=== PATIENT | female | born 1965 | race Caucasian/White ===

== ENCOUNTER 2020-12-21 09:35 | Outpatient (CLI) | payer OTHER, SELFPAY ==
--- NOTE | 2021-01-09 02:25 | WPDHOMESLEEP ---
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 She had COVID-19 in May of 2020 and this worsened her quality of sleep. She feels that she cannot get enough oxygen, and needs to remind herself to take deep breaths. In the past she was prescribed a sleeping pill to help with sleep issues but she did not have any benefit. When she worked 2 jobs, she used to take Advil p.m. and Benadryl to help her fall asleep. She no longer does this. She occasionally awakens from sleep feeling short of breath. She does not awaken at night with heartburn, belching or coughing. She frequently snores but only occasionally isn't loud enough that others complain about it. She occasionally has difficulty sleeping with a cold. She frequently wakes up gasping for breath at night and this happens while she is dreaming. She never sweats excessively at night. She occasionally notices her heart pounding or beating irregularly at night, usually associated with dreaming or noises. She rarely falls asleep during the day, never involuntarily and never while driving. She does not have loss of muscle tone with strong emotion. She rarely has daytime difficulty due to excessive sleepiness. She does not feel paralyzed on waking or falling asleep, does not have vivid dreamlike scenes upon awakening or falling asleep and does not feel afraid to go to sleep. She does not have nightmares. She occasionally remembers her dreams. She frequently has racing thoughts. She rarely feels sad or depressed. She frequently has anxiety and muscular tension. She occasionally notices parts of her body jerking. She frequently kicks at night. She does not have crawling and aching feelings in her legs, does not have any kind of leg pain at night and does jaw pain. She occasionally grinds her teeth during sleep. She occasionally has bothered by pain during the day, occasionally awakened by pain at night, occasionally wakes up feeling stiff in the morning with sore achy muscles and pain in the neck and spine. She has rare morning headaches, fatigue, insomnia, She rarely has problems with memory or concentration. Her hematocrit was elevated at 46.1% on 10/13/2020. Normal bedtime is between 930 and 10:00 p.m. taking 30 minutes sometimes longer to fall asleep typically waking 3 times during the night. She made have a snack, watch television or read. It may take her 1-3 hours to fall asleep again. She wakes the morning at 5:30 a.m.. On the weekends, bedtime is 10:00 p.m. and her wake-up time is 7:00 a.m.. She falls asleep with the television on. She does not generally take naps in the afternoon or evening. She does feel refreshed after a short nap but generally does not nap. She is drowsy the morning for 3 hours or longer. She feels better in the morning or evening compared to the afternoons. Habits: Never smoked tobacco. Caffeine 4-6 cups of coffee per day. Alcohol 1-2 glasses of wine in the evening. No recreational drugs. [facility] Past Medical History Medical History (Updated 01/09/21 @ 07:01 by Esther Velazquez MD) Allergies Bronchitis Cyst of breast Excessive daytime sleepiness Fatigue Headache Low vitamin D level Polycythemia Skin cancer Surgical History Surgical History (Updated 04/15/19 @ 14:33 by Jamila Puga CMA) H/O tubal ligation History of breast lump removal Hx of foot surgery Family History Family History (Updated 04/15/19 @ 15:12 by Jamila Puga CMA) Mother Heart disease
[2021-01-09 07:02] VITALS: BMI 26.5
== END 2020-12-30 14:09 | disposition home or self-care (01) ==
PROVIDERS: PCP Internal Medicine; Visit Provider Nurse Practitioner
DX: G47.10 Hypersomnia, unspecified (principal)
CPT/HCPCS: 95800

== ENCOUNTER 2021-04-17 07:43 | Emergency (ER) | payer OTHER, SELFPAY ==
--- NOTE | ~2021-04-17 | XR_ITS ---
EXAMINATION: XR hand RT min 3V INDICATION: Right hand pain TECHNIQUE: Three views of the right hand are obtained. COMPARISON: None available FINDINGS: There is no fracture, dislocation, or subluxation. There is mild osteoarthritis of multiple interphalangeal joints. The soft tissues are unremarkable. IMPRESSION: 1. No acute osseous abnormality. Reviewed, dictated and finalized at location B. 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
--- NOTE | ~2021-04-17 | XR_ITS ---
XR shoulder RT min 2V 04/17/2021 08:34 INDICATION: Right shoulder pain after fall PROCEDURE: 4 views right shoulder COMPARISON: No prior studies for comparison. FINDINGS: Fracture, dislocation or subluxation is not identified. The soft tissues appear within norm al limits. No foreign bodies are identified. IMPRESSION: 1: NO ACUTE BONE OR JOINT ABNORMALITY IDENTIFIED. Reviewed, dictated and finalized at location A. 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
--- NOTE | 2021-04-17 08:33 | ED.UPPEXIN ---
HPI - Extremity Injury (Upper) General Chief Complaint: Extremity Injury, Upper Stated Complaint: FALL, R HAND PAIN Time Seen by Provider: 04/17/21 08:14 Source: patient and RN notes reviewed Mode of arrival: ambulatory Limitations: no limitations History of Present Illness HPI narrative: This is a 55 year old female who presents for evaluation of right hand pain s/p fall. Last night she accidentally fell onto her right hand. She thinks her shoe got caught on something. She denies hitting her head or LOC. She reports abrasion to right knee, right shoulder soreness and right hand pain. She has been able to walk without issue to her knee. She states her right hand was swollen last night so she took medication and applied ice. This morning she noticed pain to right second finger so she wants a hand xray. Denies numbness or tingling. Related Data Allergies Allergy/AdvReac Type Severity Reaction Status Date / Time levofloxacin Allergy Unknown Hives Verified 04/17/21 07:44 prednisone Allergy Unknown Hives Verified 04/17/21 07:44 Quinolones Allergy Unknown Hives Verified 04/17/21 07:44 tetracycline Allergy Unknown Hives Verified 04/17/21 07:44 Review of Systems Review of Systems: All systems reviewed & are unremarkable except as noted in HPI and below PMFSH Past Medical History Medical History Allergies Bronchitis Cyst of breast Excessive daytime sleepiness Fatigue Headache Low vitamin D level Polycythemia Skin cancer Surgical History Surgical History H/O tubal ligation History of breast lump removal Hx of foot surgery Family History Family History (Updated 04/15/19 @ 15:12 by Jamila Puga CMA) Mother Heart disease Social History Social History Smoking status: Never smoker Alcohol intake: current Exam Const: General: no acute distress and alert Orientation/consciousness: patient oriented x3 HENMT: Head: normocephalic and atraumatic Face and sinus: face symmetric Eyes: EOM: EOMs intact bilaterally Chest: Chest palpation & inspection: normal inspection of the chest Resp: Effort & Inspection: normal respiratory effort Neuro: General: patient oriented x3 and moves all extremities Extrem: Other: abrasion to right knee but no swelling or deformity FROM right shoulder- no swelling or bruising FROM right hand and fingers, no bruising or deformity, TTP right second finger at DIP Course Reevaluation(s) Reevaluation #1: I discussed with patient that xray was negative. I discussed discharge plan. She does not have any additional questions. Date: 04/17/21 Time: 09:07 Vital Signs Vital signs: Vital Signs Temperature 97 F L 04/17/21 08:50 Pulse Rate 87 04/17/21 08:50 Respiratory Rate 16 04/17/21 08:50 Blood Pressure 97/65 L 04/17/21 08:50 Pulse Oximetry 97 04/17/21 08:50 Temperature 97 F L 04/17/21 08:50 Pulse Rate 87 04/17/21 08:50 Respiratory Rate 16 04/17/21 08:50 Blood Pressure 97/65 L 04/17/21 08:50 Pulse Oximetry 97 04/17/21 08:50 MDM - Extremity Injury (Upper) Imaging Data Radiologist's impression: ITS Impressions Hand X-Ray 04/17/21 08:38 IMPRESSION: 1. No acute osseous abnormality. Shoulder X-Ray 04/17/21 08:39 IMPRESSION: 1: NO ACUTE BONE OR JOINT ABNORMALITY IDENTIFIED. Discharge Plan Discharge Clinical Impression: Contusion of hand, right, Sprain of right shoulder Patient Disposition: Home, Self-Care Condition: Stable Instructions: Antibiotic Form, Hand Sprain (ED) Additional Instructions: Today your xrays were negative for fracture or broken bone. Take tylenol and ibuprofen for your pain. Prescriptions: No Action albuterol sulfate [Ventolin HFA] 90 mcg/actuation HFA aerosol inhaler 2 puff INHALATION Q4-6H PRN (Reason: shortness of breath or wheezing) Qty: 8.
[2021-04-17 08:50] VITALS: BP 97/65; PULSE 87; RESP 16; TEMP 36.1; O2SAT 97
== END 2021-04-17 09:30 | disposition home or self-care (01) ==
PROVIDERS: Emergency Provider General Practice; PCP Internal Medicine
DX: S60.221A Contusion of right hand, initial encounter (principal); S43.401A Unspecified sprain of right shoulder joint, initial encounter; D75.1 Secondary polycythemia; Z85.828 Personal history of other malignant neoplasm of skin; W01.0XXA Fall on same level from slipping, tripping and stumbling without subsequent striking against object, initial encounter
CPT/HCPCS: 73030; 73130; 99284

== ENCOUNTER → 2021-06-21 16:34 | Outpatient (CLI) | payer OTHER, SELFPAY ==
--- NOTE | ~2021-06-21 | XR_ITS ---
EXAMINATION: XR sacrum coccyx min 2V INDICATION: Pain after fall TECHNIQUE: Three views of the sacrum and coccyx are obtained. COMPARISON: None available FINDINGS: Bone alignment is normal. No definite fracture is identified. There are phleboliths of the pelvis. IMPRESSION: 1. No definite acute fracture identified. Reviewed, dictated and finalized at location F. 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
== END ==
PROVIDERS: PCP Internal Medicine; Visit Provider Nurse Practitioner
DX: M53.3 Sacrococcygeal disorders, not elsewhere classified (principal)
CPT/HCPCS: 72220

== ENCOUNTER → 2023-01-22 09:24 | Outpatient (CLI) | payer OTHER, SELFPAY ==
--- NOTE | ~2023-01-22 | XR_ITS ---
EXAMINATION: XR knee LT 3V DATE: 01/22/2023 10:08 INDICATION: Left knee pain. TECHNIQUE: 3 views of left knee including standing views were obtained. COMPARISON: None. FINDINGS: Bone alignment is normal. No fracture. There is mild osteoarthritis of medial and patellofe moral compartments characterized by marginal osteophytes. No joint space narrowing. No knee joint eff usion. IMPRESSION: 1. Mild left knee osteoarthritis. Reviewed, dictated and finalized at location A.
--- NOTE | ~2023-01-22 | XR_ITS ---
EXAMINATION: XR knee RT 3V DATE: 01/22/2023 10:08 INDICATION: Right knee pain. TECHNIQUE: 3 views of right knee including standing views were obtained. COMPARISON: None. FINDINGS: Bone alignment is normal. No fracture. There is mild osteoarthritis of medial and patellofe moral compartments characterized by tiny osteophytes. No joint space narrowing. No knee joint effusio n. IMPRESSION: 1. Mild right knee osteoarthritis. Reviewed, dictated and finalized at location A.
== END ==
PROVIDERS: PCP Internal Medicine; Visit Provider Internal Medicine
DX: R51.9 Headache, unspecified (principal); M17.0 Bilateral primary osteoarthritis of knee
CPT/HCPCS: 73562

== ENCOUNTER → 2023-01-22 09:28 | Outpatient (CLI) | payer OTHER, SELFPAY ==
--- NOTE | ~2023-01-22 | XR_ITS ---
EXAMINATION: XR wrist RT min 3V DATE: 01/22/2023 10:08 INDICATION: Right wrist pain. TECHNIQUE: 4 views of right wrist were obtained. COMPARISON: Right hand radiographs 04/17/2021 FINDINGS: Bone alignment is normal. No fracture. Joint spaces are normal. IMPRESSION: 1. Normal right wrist. Reviewed, dictated and finalized at location A. IMPRESSION: 1. Normal right wrist.
--- NOTE | ~2023-01-22 | XR_ITS ---
EXAMINATION: XR wrist LT min 3V DATE: 01/22/2023 10:09 INDICATION: Left wrist pain. TECHNIQUE: 4 views of left wrist were obtained. COMPARISON: None. FINDINGS: Bone alignment is normal. No fracture. Joint spaces are normal. IMPRESSION: 1. Normal left wrist. Reviewed, dictated and finalized at location A. IMPRESSION: 1. Normal left wrist.
== END ==
PROVIDERS: PCP Internal Medicine; Visit Provider Internal Medicine
DX: M25.531 Pain in right wrist (principal); M25.532 Pain in left wrist
CPT/HCPCS: 73110

== ENCOUNTER → 2023-02-22 08:30 | Outpatient (CLI) | payer OTHER, SELFPAY ==
--- NOTE | ~2023-02-22 | MR_ITS ---
EXAMINATION: MR brain/brain stem wo/w con DATE: 02/22/2023 09:10 INDICATION: Headache, unspecified. TECHNIQUE: Magnetic resonance imaging (MRI) of the brain and brainstem was performed without and with 13 mL MultiHance intravenous contrast. COMPARISON: Head CT 07/13/2007 FINDINGS: There is no intracranial hemorrhage, acute infarction, or abnormal intracranial mass lesion . There are a few areas of nonspecific increased T2-weighted signal intensity in the cerebral white m atter, which is within normal limits for the patient's age. The ventricles are normal in size. The pa ranasal sinuses are clear. The orbits are normal. The mastoid air cells are normal. IMPRESSION: 1. Normal brain. Reviewed, dictated and finalized at location A. IMPRESSION: 1. Normal brain.
== END ==
PROVIDERS: PCP Internal Medicine; Visit Provider Internal Medicine
DX: R51.9 Headache, unspecified (principal); M25.50 Pain in unspecified joint
CPT/HCPCS: 70553; A9577

== ENCOUNTER 2023-05-15 13:36 | Outpatient (CLI) | payer OTHER, SELFPAY ==
--- NOTE | ~2023-05-15 | CT_ITS ---
CT ANGIOGRAM NECK AND HEAD History: Dizziness, headache. Technique: Axial noncontrast imaging of the brain was performed. Serial spiral axial images through t he head and neck were then obtained during arterial phase IV injection of 100 cc of Omnipaque 350. 3- D postprocessing and MIP images were then reconstructed on the remote workstation. Dose reduction dashawn hnique was used on this scan by utilizing automated exposure control and iterative reconstruction dashawn hnique. The dose-length product (DLP) was 1393.77 mGy-cm. CTA neck findings: Bilateral vertebral arteries are patent. Bowel, carotid, internal carotid, and ex ternal carotid arteries are patent. No large vessel occlusion. No stenosis or aneurysm. The proximal right internal carotid artery demonstrates 0% stenosis relative to the normal distal artery lumen omar meter. The proximal left internal carotid artery demonstrates 0% stenosis relative to the normal dist al artery lumen diameter. CTA head findings: Distal vertebral arteries, basilar artery, and posterior cerebral arteries are pat ent. Distal internal carotid arteries, middle cerebral arteries, and anterior cerebral arteries are p atent. No large vessel occlusion. No stenosis or aneurysm. Axial noncontrast imaging of the brain is unremarkable. No intracranial hemorrhage, mass lesion, or a cute infarct seen. Rodgers-white differentiation preserved. No mass effect or midline shift evident. Anton tricles and subarachnoid spaces are unremarkable. Paranasal sinuses and mastoid air cells are clear. Impression: Unremarkable exam. Reviewed, dictated and finalized at location . 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
== END 2023-05-15 13:37 ==
LOC: MICIMG 13:37
PROVIDERS: PCP Internal Medicine
DX: R42 Dizziness and giddiness (principal)
CPT/HCPCS: 70496; 70498; Q9967